=== PATIENT | female | born 1980 | race Caucasian/White ===

== ENCOUNTER 2019-06-23 08:00 | Day surgery (SDC) | payer BC, MEDICAID ==
[2019-06-17 11:17] LABS: BASOPHIL % 0.4 % (0-2); PLATELET COUNT 287 x10^3mcL (130-400)
[2019-06-17 11:18] LABS: RED CELL DISTRIBUTION WIDTH 23.5 % (11.5-14.5)
[2019-06-17 11:46] LABS: ALBUMIN 3.8 g/dL (3.4-5.0); ALKALINE PHOSPHATASE 63 U/L (46-116); AST/SGOT 21 U/L (15-37); BILIRUBIN TOTAL 0.41 mg/dL (0.20-1.00); CALCIUM 9.6 mg/dL (8.5-10.1); CARBON DIOXIDE 26.8 mmol/L (21-32); CHLORIDE SERUM 106 mmol/L (98-107); CREATININE SERUM 0.6 mg/dL (0.6-1.0); GFR1 > 60 mL/min; GLUCOSE SERUM 93 mg/dL (74-106); SODIUM SERUM 141 mmol/L (136-145); TOTAL PROTEIN, SERUM 7.9 g/dL (6.4-8.2)
[2019-06-17 11:50] LABS: rbc morphology (normal/abnorm) ABNORMAL (NORMAL)
[2019-06-17 12:01] LABS: ALT/SGPT 27 U/L (14-59)
[~2019-06-23] VITALS: Ht 154.9 cm; Wt 63.5 kg
[2019-06-23 08:18] VITALS: BP 147/89
[2019-06-23 15:14] VITALS: BP 134/86
== END 2019-06-23 15:05 | disposition home or self-care (01) ==
LOC: MA 08:00
PROVIDERS: Surgery
DX: D05.12 Intraductal carcinoma in situ of left breast (principal); D64.9 Anemia, unspecified; F41.9 Anxiety disorder, unspecified; I10 Essential (primary) hypertension; G43.909 Migraine, unspecified, not intractable, without status migrainosus; Z79.899 Other long term (current) drug therapy; Z87.59 Personal history of other complications of pregnancy, childbirth and the puerperium
CPT/HCPCS: J0690; J1170; J2001; J2405; J2704; J3010; J3490; J7120